=== PATIENT | male | born 1995 | race Caucasian/White ===

== ENCOUNTER 2017-05-13 19:58 | Emergency (ER) | payer OTHER ==
[~2017-05-13] VITALS: Ht 170.2 cm; Wt 103.3 kg
[2017-05-13 20:44] VITALS: BP 179/104; PULSE 103; RESP 16; TEMP 98.4; O2SAT 97
[2017-05-13] MEDS ORDERED: SODIUM CHLOR 0.9% 1000 ML INJ 1,000 ML IV SCH (22:24)
[2017-05-13] MEDS ORDERED: ONDANSETRON HCL 4 MG/2 ML VIAL IVP ONE (22:30)
[2017-05-13] MEDS ORDERED: SODIUM CHLORIDE 0.9% FLUSH 10 ML FLUSH IV FLUSH PRN (22:30)
[2017-05-13 22:52] LABS: AUTOMATED NEUTROPHIL # 5.9 TH/MM3 (1.8-7.7); BASOPHIL # 0.1 TH/MM3 (0-0.2); BASOPHIL % 0.8 % (0.0-2.0); EOSINOPHIL % 0.4 % (0.0-4.0); HEMATOCRIT 48.4 % (39.0-51.0); HEMOGLOBIN 16.3 GM/DL (13.0-17.0); LYMPH % 19.8 % (9.0-44.0); LYMPHOCYTE # 1.6 TH/MM3 (1.0-4.8); MEAN CELL VOLUME 91.4 FL (80.0-100.0); MEAN CORPUSCULAR HEMOGLOBIN 30.9 PG (27.0-34.0); MEAN CORPUSCULAR HGB CONC 33.8 % (32.0-36.0); MEAN PLATELET VOLUME 8.1 FL (7.0-11.0); MONO % 6.1 % (0.0-8.0); MONOCYTE # 0.5 TH/MM3 (0-0.9); NEUT % 72.9 % (16.0-70.0); PLATELET COUNT 264 TH/MM3 (150-450); RED BLOOD COUNT 5.29 MIL/MM3 (4.50-5.90); RED CELL DISTRIBUTION WIDTH 11.2 % (11.6-17.2); WHITE BLOOD COUNT 8.1 TH/MM3 (4.0-11.0)
[2017-05-13 22:56] LABS: CHLORIDE 101 MEQ/L (98-107); SODIUM (NA) 136 MEQ/L (136-145)
[2017-05-13 22:59] LABS: ALBUMIN 4.8 GM/DL (3.4-5.0); CALCIUM 9.1 MG/DL (8.5-10.1)
[2017-05-13 23:00] LABS: BICARBONATE 27.6 MEQ/L (21.0-32.0); BLOOD UREA NITROGEN 14 MG/DL (7-18); GLUCOSE,RANDOM 95 MG/DL (74-106)
[2017-05-13 23:02] LABS: ALT (GPT) 20 U/L (9-52)
[2017-05-13 23:03] LABS: AST (GOT) 15 U/L (15-39); CREATININE 0.89 MG/DL (0.60-1.30); GLOMERULAR FILTRATION RATE 109 ML/MIN (>89)
[2017-05-13 23:04] LABS: TOTAL BILIRUBIN ADULT 1.1 MG/DL (0.2-1.0); TOTAL PROTEIN 8.6 GM/DL (6.4-8.2)
[2017-05-13 23:07] LABS: ALKALINE PHOSPHATASE 69 U/L (45-117)
[2017-05-13 23:08] VITALS: O2SAT 99
[2017-05-13] MEDS ORDERED: POTASSIUM CHLORIDE 10 MEQ CONTROLLED RELEASE TAB PO ONE (23:30)
[2017-05-13] MEDS ORDERED: METOCLOPRAMIDE INJ 10 MG in SODIUM CHLORIDE 0.9% INJ 50 ML IV ONE (23:30)
[2017-05-13] MEDS ORDERED: ZOFR4TAB3 SL (23:44)
--- NOTE | 2017-05-13 23:44 | PD ---
HPI Chief Complaint: GI Complaint Time Seen by Provider: 22:19 Travel History International Travel<30 days: No Contact w/Intl Traveler<30days: No Traveled to known affect area: No History of Present Illness HPI Patient is a 21 year old male who comes in complaining of nausea, vomiting, diarrhea. He says it started yesterday evening. He says the last thing he ate was a chicken sandwich at [facility]. He denies any abdominal pain. He denies any sick contacts. He says he has not been able to keep anything down. He denies blood in his vomit or stool. Severity is mild to moderate. PFSH Past Medical History Medical History: Denies Significant Hx Diminished Hearing: No Tetanus Vaccination: < 5 Years Influenza Vaccination: Yes Past Surgical History Surgical History: No Previous Surgery Social History Alcohol Use: Yes (Rarely) Tobacco Use: No Substance Use: No Allergies-Medications (Allergen,Severity, Reaction): Coded Allergies: No Known Allergies (Unverified , 05/13/17) Reported Meds & Prescriptions Reported Meds & Active Scripts Active Zofran Odt (Ondansetron Odt) 4 Mg Tab 4 Mg SL Q6HR PRN Review of Systems Except as stated in HPI: all other systems reviewed are Neg General / Constitutional: No: Fever, Chills HENT: No: Headaches, Lightheadedness Cardiovascular: No: Chest Pain or Discomfort Respiratory: No: Shortness of Breath Gastrointestinal: Positive: Nausea, Vomiting, Diarrhea, No: Abdominal Pain Musculoskeletal: No: Myalgias, Edema Skin: No Rash Neurologic: No: Weakness, Dizziness Physical Exam Narrative GENERAL: Awake and alert, in no acute distress. SKIN: Focused skin assessment warm/dry. No wounds or signs of infection. HEAD: Atraumatic. Normocephalic. EYES: Pupils equal and round. No scleral icterus. ENT: Mucous membranes pink and moist. NECK: Trachea midline. No JVD. CARDIOVASCULAR: Regular rate and rhythm. No murmur appreciated. RESPIRATORY: No accessory muscle use. Clear to auscultation. Breath sounds equal bilaterally. GASTROINTESTINAL: Abdomen soft, non-tender, nondistended. MUSCULOSKELETAL: No obvious deformities. No clubbing. No cyanosis. No edema. NEUROLOGICAL: Awake and alert. No obvious cranial nerve deficits. Motor grossly within normal limits. Normal speech. PSYCHIATRIC: Appropriate mood and affect; insight and judgment normal. Data Data Last Documented VS Vital Signs Date Time Temp Pulse Resp B/P (MAP) Pulse Ox O2 Delivery O2 Flow Rate FiO2 05/13/17 23:08 99 Room Air 05/13/17 20:44 98.4 103 16 179/104 (129) Orders Orders Complete Blood Count With Diff (05/13/17 22:24) Comprehensive Metabolic Panel (05/13/17 22:24) Lipase (05/13/17 22:24) Iv Access Insert/Monitor (05/13/17 22:24) Ecg Monitoring (05/13/17 22:24) Oximetry (05/13/17 22:24) Ondansetron Inj (Zofran Inj) (05/13/17 22:30) Sodium Chlor 0.9% 1000 Ml Inj (Ns 1000 M (05/13/17 22:24) Sodium Chloride 0.9% Flush (Ns Flush) (05/13/17 22:30) Potassium Chloride (Kcl) (05/13/17 23:30) Metoclopramide Inj (Reglan Inj) (05/13/17 23:30) Ed Discharge Order (05/14/17 00:20) Labs Laboratory Tests Test 05/13/17 22:40 White Blood Count 8.1 TH/MM3 Red Blood Count 5.29 MIL/MM3 Hemoglobin 16.3 GM/DL Hematocrit 48.4 % Mean Corpuscular Volume 91.4 FL Mean Corpuscular Hemoglobin 30.9 PG Mean Corpuscular Hemoglobin Concent 33.8 % Red Cell Distribution Width 11.2 % Platelet Count 264 TH/MM3 Mean Platelet Volume 8.1 FL Neutrophils (%) (Auto) 72.9 % Lymphocytes (%) (Auto) 19.8 % Monocytes (%) (Auto) 6.1 % Eosinophils (%) (Auto) 0.4 % Basophils (%) (Auto) 0.8 % Neutrophils # (Auto) 5.9 TH/MM3 Lymphocytes # (Auto) 1.6 TH/MM3 Monocytes # (Auto) 0.5 TH/MM3 Eosinophils # (Auto) 0.0 TH/MM3 Basophils # (Auto) 0.1 TH/MM3 CBC Comment DIFF FINAL Differential Comment Blood Urea Nitrogen 14 MG/DL Creatinine 0.89 MG/DL Random Glucose 95 MG/DL Total Protein 8.6 GM/DL Albumin 4.8 GM/DL Calcium Level 9.1 MG/DL Alkaline Phosphatase 69 U/L Aspartate Amino Transf (AST/SGOT) 15 U/L Alanine Aminotransferase (ALT/SGPT) 20 U/L Total Bilirubin 1.1 MG/DL Sodium Level 136 MEQ/L Potassium Level 3.3 MEQ/L Chloride Level 101 MEQ/L Carbon Dioxide Level 27.6 MEQ/L Anion Gap 7 MEQ/L Estimat Glomerular Filtration Rate 109 ML/MIN Lipase 75 U/L MDM Medical Decision Making Medical Screen Exam Complete: Yes Emergency Medical Condition: Yes Differential Diagnosis gastroenteritis vs dehydration vs electrolyte abnormalities Narrative Course Patient is a 21 year old male who comes in complaining of nausea and vomiting and diarrhea. Exam shows no abdominal tenderness on palpation. IV established , labs sent. Labs show a potassium of 3.3, no other abnormalities. Given IVF, Zofran. He says this has controlled the vomiting, but he still feels nauseous. Given Reglan and potassium replaced. Will be discharged with prescription for Zofran. Advised to follow up with his doctor. Advised to drink plenty of fluids. Advised to eat a bland diet. Advised to return at any time for any worsening symptoms. Diagnosis Primary Impression: Nausea, vomiting and diarrhea Patient Instructions: Acute Nausea and Vomiting (ED), General Instructions Additional Instructions: Drink plenty of fluids. Eat a bland diet. Take Zofran as needed for nausea. Follow up with your doctor. Return to the ED as needed for any worsening symptoms. Scripts Ondansetron Odt (Zofran Odt) 4 Mg Tab 4 MG SL Q6HR Y for Nausea/Vomiting, #12 TAB 0 Refills Prov: Deb Krishnamurthy MD 05/13/17 Disposition: DISCHARGE HOME Condition: Stable Deb Krishnamurthy MD May 13, 2017 23:44
[2017-05-14 00:35] VITALS: BP 165/87; PULSE 89; RESP 16; O2SAT 98
[2017-05-14 00:42] VITALS: BP 168/87; TEMP 98.3
== END 2017-05-14 00:43 | disposition home or self-care (01) ==
LOC: PHED 19:58
DX: R11.2 Nausea with vomiting, unspecified (principal); R19.7 Diarrhea, unspecified
CPT/HCPCS: 80053; 83690; 85025; 96361; 96365; 96375; 99284; J2405; J2765; J7030